=== PATIENT | female | born 1985 | race Caucasian/White ===

== ENCOUNTER 2021-08-27 05:45 | Day surgery (SDC) | payer OTHER ==
[~2021-08-27] VITALS: Ht 152.4 cm; Wt 95.9 kg
--- NOTE | ~2021-08-27 | OR ---
[facility] [address], [place] [address] Draft DATE OF OPERATION: 08/27/2021 SURGEON: Sofie Santiago DO PROCEDURES: Diagnostic laparoscopy, hysteroscopy, and dilation and curettage. PREOPERATIVE DIAGNOSES: Pelvic pain and abnormal uterine bleeding. POSTOPERATIVE DIAGNOSES: Pelvic pain and abnormal uterine bleeding. FIRE ENGINEER: Price Yeh MD. BLOOD LOSS: 10 mL. ANESTHESIA: General. COMPLICATIONS: None. FINDING: Normal-appearing cervix and endocervical canal. Uterus with normal-appearing endometrial cavity and bilateral tubal ostia well visualized. Polypoid and thickened endometrial endometrium without distinct areas of concern. Laparoscopy findings of normal-appearing uterus, bilateral tubes and ovaries. No endometriosis lesions visualized in the posterior cul-de-sac. Bilateral ovarian fossa overlying either uterosacral ligament or overlying the bladder. No endometriomas were visualized on either ovary. Otherwise, normal-appearing survey of the pelvis. PROCEDURE IN DETAIL: The patient was taken back to the operating room where she was placed in dorsal lithotomy under general anesthesia. She was prepped and draped in normal sterile fashion. A weighted speculum was placed in the vagina. Anterior lip of the cervix was grasped with an Allis clamp and cervix was easily sequentially dilated with Hegar dilators to a size 6. Hysteroscope was then introduced and endometrial cavity was PATIENT NAME: IGLESIA PRYOR OPERATIVE REPORT DATE OF : 89 REPORT #: [id number] PHYSICIAN: SOFIE SANTIAGO DO PCP: OTHER PCP REPORT IS CONFIDENTIAL AND NOT TO BE RELEASED WITHOUT AUTHORIZATION [facility] [address], [place] [address] Draft surveyed with findings as noted above. MyoSure Reach device was used to perform circumferential curettage of the endometrium. All instrumentation was removed. Allis clamp was replaced with a Hulka uterine manipulator. The surgeon's gloves were changed and attention was turned to the abdomen. 1% lidocaine was injected vertically in the umbilicus. A 5 mm vertical incision was made with a scalpel and a 5 mm trocar was introduced directly into the abdomen. Of note initial attempt with regular length direct entry trocar did not reach the fascia. This was replaced with an extra long trocar and intraabdominal placement was successfully achieved. Pneumoperitoneum was achieved with CO2 gas. The pelvis was surveyed with findings as noted above. No endometriosis lesions were noted. Minor congestion of bilateral ovarian vasculature was noted, but no other procedures were performed at this time. All instrumentation was removed. Abdomen was desufflated. Skin was closed with 4-0 Vicryl and Hulka clamp was removed from the cervix. Excellent hemostasis was noted. The patient was taken to recovery room in stable and satisfactory condition. DO KASHMIR Little/RENETTAL /[id number] Copies: ~ PATIENT NAME: IGLESIA PRYOR OPERATIVE REPORT DATE OF : [birth year] REPORT #: [id number] PHYSICIAN: SOFIE SANTIAGO DO PCP: OTHER PCP REPORT IS CONFIDENTIAL AND NOT TO BE RELEASED WITHOUT AUTHORIZATION
[~2021-08-27 05:45] MED LIST: METFORMIN HCL500 MG PO; ZESTRIL10 MG PO
--- NOTE | 2021-08-27 08:40 | NUR ---
08/27/21 0840 Elda Tucker 0835- PT ARRIVES TO PACU NONAROUSABLE TO NOXIOUS STIMULI WITH AN OPA IN PLACE. RESP EVEN AND TACHYPNEIC. OXYGEN SAT HIGH 90'S ON 10L VIA MASK.
--- NOTE | 2021-08-27 09:23 | NUR ---
0920 PT BACK TO ROOM FROM PACU, MOM AT BEDSIDE. PT DEEP BREATHING AND COUGHING. MOM AT BED SIDE.
--- NOTE | 2021-08-27 09:26 | NUR ---
0926 PT COMPLAINS OF SORE THROAT, TAKING SIPS OF WATER TOLERATES WELL, SHE REPORTS SHE FEELS LIKE THERE IS SOMETHING IN HER THROAT, TRYING TO CLEAR THROAT.
--- NOTE | 2021-08-27 09:49 | NUR ---
PATIENT BACK TO ROOM FROM PACU. RECEIVED REPORT FROM LUCY SMITH. PATIENT IS AWAKE STATING HER PAIN IS 8/10. DENIES NAUSEA. PATIENT IS TACHY WITH HEART RATE AROUND 114. C/O FEELING A "BALL" IN HER THROAT. PATIENT IS DRINKING WATER AND APPLESAUCE GIVEN. UMBILICAL DRESSING IS CLEAN, DRY, AND INTACT, DOMINIC PAD HAS A SMALL AMOUNT OF BLOOD ON IT. MOM AT BEDSIDE. CALL LIGHT WITHIN REACH.
--- NOTE | 2021-08-27 10:18 | NUR ---
0956-PAIN MEDICATION GIVEN PER JAN. 1005-PATIENT UP TO THE RESTROOM WITH 1 RN ASSIST. NO DIZZINESS. GAIT STEADY AND TOLERATED WELL. PATIENT VOIDED 400ML.
--- NOTE | 2021-08-27 10:19 | NUR ---
PT ALERT, ORIENTED AND SUPPORTED BY HER MOTHER.PT IS SOMEWHAT ANXIOUS, GAVE ENCOURAGEMENT AND COMFORT. MOTHER WILL REMAIN, DR KIMBALL IN TO VISIT WITH PT. GAVE BLESSING, WILL FOLLOW
--- NOTE | 2021-08-27 10:37 | NUR ---
PATIENT RESTING IN BED. PATIENT RATES PAIN 4/10. DENIES NAUSEA. PATIENT STILL IS TACHY WITH HEART RATE AROUND 114. PATIENT FEEL WELL. DRESSING ON ABDOMINAL INCISION IS CLEAN, DRY, AND INTACT, SMALL AMOUNT OF BLOOD ON THE DOMINIC PAD. MOM AT BEDSIDE. CALL LIGHT WITHIN REACH. PATIENT READY TO GO HOME. TALKED TO CRISTAL VÁSQUEZ ABOUT HEART RATE AND HE STATES OK TO SEND PATIENT HOME.
--- NOTE | 2021-08-27 11:10 | NUR ---
PROVIDED PATIENT WITH DISCHARGE INSTRUCTIONS. PATIENT VERBALIZED UNDERSTANDING AND ALL QUESTIONS ANSWERED. PAIN 4/10. SMALL AMOUNT OF VAGINAL BLEEDING ON DOMINIC PAD. WHEELCHAIR RIDE TO FRONT OF HOSPITAL WHERE MOM WAS WAITING.
--- NOTE | 2021-08-28 16:03 | PATH ---
[facility] [address], [place] [address] Signed SPECIMEN(S): A ENDOMETRIAL CURETTINGS SPECIMEN SOURCE: A. ENDOMETRIAL CURETTINGS CLINICAL HISTORY: AUB, pelvic pain, chronic vaginitis. FINAL PATHOLOGIC DIAGNOSIS: Endometrium, curettings: - Proliferative phase endometrium. COMMENT: The specimen consists of benign proliferative phase endometrium without significant abnormality. There is no evidence of hyperplasia or carcinoma. Chronic endometritis, interstromal fibrin, or products of conception are not identified. TWK:emh:C2NR MICROSCOPIC EXAMINATION: Histologic sections of all submitted blocks are examined by light microscopy. These findings, together with the gross examination, support the pathologic diagnosis. GROSS DESCRIPTION: The specimen, labeled "CP, A," and designated on the requisition "endometrial curettings," is received in formalin and consists of mucus and clot material with fuchs-pink soft tissue fragments measuring 4.6 x 2.6 x 0.6 cm in aggregate. The specimen is filtered and entirely submitted in cassettes A1-A2. AT (under the direct supervision of a pathologist) The Gross Description was prepared using a voice recognition system. The report was reviewed for accuracy; however, sound-alike word errors, addition and/or deletions may occur. If there is any question about this report, please contact Client Services. PERFORMING LABORATORY: The technical component was performed by [email or web address], [address] [place] [id number] (Pathology Laboratory Director: Leydi Severino MD; CLIA# [id number]). The professional interpretation was performed by [email or web address], [facility], [address] [place] PATIENT NAME: IGLESIA PRYOR PATHOLOGY DATE OF : [birth year] REPORT #: [id number] PHYSICIAN: [facility] PCP: OTHER PCP REPORT IS CONFIDENTIAL AND NOT TO BE RELEASED WITHOUT AUTHORIZATION [facility] [address] [facility] [place], [place] [address] Signed [id number]. Diagnostician: Florencio Munoz MD Pathologist Electronically Signed 08/28/2021 Copies: ~ PATIENT NAME: IGLESIA PRYOR PATHOLOGY DATE OF : [birth year] REPORT #: [id number] PHYSICIAN: [facility] PCP: OTHER PCP REPORT IS CONFIDENTIAL AND NOT TO BE RELEASED WITHOUT AUTHORIZATION
== END 2021-08-27 11:10 | disposition home or self-care (01) ==
LOC: DS 05:45 → OPS 05:45
PROVIDERS: ATTEND Obstetrics & Gynecology
PROC: 0UJD4ZZ Inspection of Uterus and Cervix, Percutaneous Endoscopic Approach (ICD-10-PCS; principal; 2021-08-27 07:00)
PROC: 0UDB8ZZ Extraction of Endometrium, Via Natural or Artificial Opening Endoscopic (ICD-10-PCS; 2021-08-27 07:00)
DX: N93.9 Abnormal uterine and vaginal bleeding, unspecified (principal); R10.2 Pelvic and perineal pain; R93.89 Abnormal findings on diagnostic imaging of other specified body structures; N76.1 Subacute and chronic vaginitis; F41.0 Panic disorder [episodic paroxysmal anxiety]; F40.240 Claustrophobia; J45.909 Unspecified asthma, uncomplicated; G47.30 Sleep apnea, unspecified; G89.29 Other chronic pain; K21.9 Gastro-esophageal reflux disease without esophagitis; E66.01 Morbid (severe) obesity due to excess calories; G43.909 Migraine, unspecified, not intractable, without status migrainosus; I10 Essential (primary) hypertension; D64.9 Anemia, unspecified; E11.9 Type 2 diabetes mellitus without complications; Z88.1 Allergy status to other antibiotic agents; Z91.040 Latex allergy status; Z79.84 Long term (current) use of oral hypoglycemic drugs; Z68.41 Body mass index [BMI] 40.0-44.9, adult
CPT/HCPCS: J0330; J1100; J1885; J2250; J2405; J2704; J2765; J3010; J7121